=== PATIENT | female | born 1995 | race Caucasian/White ===

== ENCOUNTER → 2017-08-15 | Outpatient (REF) ==
[~2017-08-15] MED LIST: CLEOCIN HCL300 MG; CLEOCIN HCL300 MG PO; DIFLUCAN150 MG PO; DOXYCYCLINE 10100 MG PO; LORTAB 5/500 501 TAB PO; LUTERA 0.02 MG-1 TAB PO; NO HOME MEDICATIONS; PREDNISONE20 MG PO; SEPTRA DS 8001 TAB PO
== END ==
LOC: ZLAB.WCH 08:41
DX: Z01.89 Encounter for other specified special examinations (principal)